=== PATIENT | male | born 1990 ===

== ENCOUNTER → 2017-11-11 | Outpatient (CLI) | payer OTHER ==
[~2017-11-11] VITALS: Ht 152.4 cm; Wt 70.3 kg
== END | disposition home or self-care (01) ==
LOC: PPHC 17:13
DX: Z11.3 Encounter for screening for infections with a predominantly sexual mode of transmission (principal)

== ENCOUNTER 2021-11-14 13:54 | Outpatient (CLI) | payer OTHER | END 2021-11-14 14:17 | disposition home or self-care (01) | LOC: SONOGRAMA 13:54 | DX: I10 Essential (primary) hypertension (principal); R10.9 Unspecified abdominal pain; R10.2 Pelvic and perineal pain ==

== ENCOUNTER 2022-03-22 12:22 | Outpatient (CLI) | payer OTHER | END 2022-03-22 12:24 | disposition home or self-care (01) | LOC: TOM 12:22 | PROVIDERS: ATTEND Internal Medicine Gastroenterology | DX: R19.04 Left lower quadrant abdominal swelling, mass and lump (principal); R10.9 Unspecified abdominal pain ==